=== PATIENT | male | born 1960 | race Caucasian/White ===

== ENCOUNTER 2016-09-03 11:57 | Inpatient (IN) | payer OTHER ==
[~2016-09-03] VITALS: Ht 175.2 cm; Wt 103.7 kg
--- NOTE | ~2016-09-03 | PR ---
[place], [place] PROGRESS NOTE NAME: LON VILLALOBOS UNIT #: [id number] ROOM: 428 DOCTOR: JONI TOMGI BIRTHDATE: [birth year] DOS: 09/04/2016 SUBJECTIVE: The patient is completely flat in bed, sleeping, easily arousable. Denies any specific cardiac complaint. Overall, he feels weak, tired, having no energy. Still feels he is short of breath. No specific chest pain, chest pressure, heaviness or tightness. No symptomatic palpitation. OBJECTIVE: VITAL SIGNS: Blood pressure 137/101, heart rate 107, on monitor is 120, and temperature 98.1. NECK: Good upstroke, no bruit. HEART: S1, S2, no rub. LUNGS: Clear to auscultation, slight decrease in air movement. No meli wheezing or rales. EXTREMITIES: Lower extremities. There is no edema with faint distal pulses. NEUROLOGIC: Grossly nonfocal. SKIN: No significant rash. LABORATORY DATA: White count 7.0, hemoglobin 14.4. Potassium 3.8, creatinine 1.49, BUN is 22. GFR is 49%. AST 39. Initial troponin of 0.063, then 0.071 and it is increasing in incremental to 0.106. INR 1.1. ASSESSMENT AND PLAN: Initial recurrent presentation with signs of tachycardia. Apparently, the patient was at his outpatient physician's office when he was noticed to be completely pale with an episode of drenching sweat and almost passed out. The patient was found out to be in atrial flutter. He had history of previous atrial fibrillation and multiple cardioversion. The patient currently on Xarelto. Our plan is to check the echocardiogram and for any wall motion abnormalities or LV dysfunction. Should that be relatively okay, then probably I am planning for patient being cardioverted on Tuesday. As per Dr. Valenzuela, the patient has been counseled about using Xarelto in the presence of aortic valve replacement, but apparently the patient accepted the risk and the notion of being off ____ use. We will plan for VANCE cardioversion hopefully on Tuesday. He will call for any change in symptoms. [place], [place] PROGRESS NOTE NAME: LON VILLALOBOS UNIT #: [id number] ROOM: [facility] DOCTOR: GI QUINONES MD BIRTHDATE: [birth year] GI QUINONES MD CM:ETHAN [id number] GI QUINONES MD 09/05/16 2253 interface
--- NOTE | ~2016-09-03 | PR ---
[place], [place] PROGRESS NOTE NAME: LON VILLALOBOS UNIT #: [id number] ROOM: 428 DOCTOR: GI QUINONES MD BIRTHDATE: [birth year] DOS: 09/05/2016 SUBJECTIVE: The patient appears to be doing relatively well. He continues to be completely asymptomatic, slightly still short of breath, tired with no energy. No meli chest pain, chest pressure, or no symptomatic palpitation. OBJECTIVE: VITAL SIGNS: Blood pressure 138/90, heart rate 70, respiratory rate of 20. NECK: Good upstroke, no bruit. HEART: S1, S2, no rub. LUNGS: Decreased air movement, but no meli wheezing or rales. LOWER EXTREMITIES: No edema. ASSESSMENT AND PLAN: History of atrial fibrillation/flutter. The patient presented with what looks like tachycardia, but symptoms of shortness of breath. The patient was found out to have atrial flutter, converted back to normal sinus rhythm spontaneously. At this stage, we will continue with Toprol 50 mg twice a day. The patient will follow up with his eeg technologist hopefully within 1-2 weeks upon discharge. This was conveyed to the patient. Antiarrhythmic will be deferred to his primary eeg technologist. . For now, we will continue with current medication along with Xarelto. GI QUINONES MD CM:PNTRANS [phone] [id number] IG QUINONES MD 09/05/161816 interface
[2016-09-03 12:03] VITALS: BP 90/60
[2016-09-03 12:14] LABS: BASO # 0.1 10*3/uL (0.0-0.1); BASO % 1.3 % (0.0-1.0); EOS # 0.4 10*3/uL (0.0-0.4); EOS % 3.4 % (1.0-4.0); HEMATOCRIT 48.9 % (42.0-52.0); HEMOGLOBIN 16.6 g/dl (14.0-18.0); LYMPH # 2.5 10*3/uL (1.3-4.4); LYMPH % 23.8 % (27.0-41.0); MEAN CELL VOLUME 97.4 fl (80.0-94.0); MEAN CORPUSCULAR HGB 33.1 pg (27.0-31.0); MEAN CORPUSCULAR HGB CONC 33.9 g/dl (33.0-37.0); MEAN PLATELET VOLUME 10.1 fl (9.6-12.3); MONO # 0.7 10*3/uL (0.1-1.0); MONO % 6.3 % (3.0-9.0); NEUT # 6.9 10*3/uL (2.3-7.9); PLATELET COUNT AUTOMATED 244 10*3/uL (130-400); RED BLOOD COUNT 5.02 10*6/uL (4.50-5.90); RED CELL DISTRI WIDTH 14.5 % (0-14.5); WHITE BLOOD COUNT 10.7 10*3/uL (4.8-10.8)
[2016-09-03 12:23] LABS: INTERNATIONAL NORM RATIO 1.1 (2.0-3.5)
[2016-09-03 12:32] LABS: BILIRUBIN, TOTAL 0.5 mg/dl (0.2-1.0); MAGNESIUM 1.9 mg/dL (1.5-2.1); POTASSIUM 3.9 mmol/L (3.5-5.1); TOTAL PROTEIN 7.5 gm/dL (6.4-8.2)
[2016-09-03 12:34] LABS: TROPONIN I 0.106 ng/ml (<0.045)
[2016-09-03] MEDS ORDERED: OXYCODONE HCL10 M1 PO (12:58)
[2016-09-03] MEDS ORDERED: DOXEPIN50 MG PO (12:59)
[2016-09-03] MEDS ORDERED: CYCLOBENZAPRINE10 MG PO ×2 (12:59→13:02)
[2016-09-03] MEDS ORDERED: MORPHINE SULFAT20 M2 PO (12:59)
[2016-09-03] MEDS ORDERED: LOPRESSOR50 M1 PO (13:00)
[2016-09-03] MEDS ORDERED: DULOXETINE HCL60 MG PO (13:00)
[2016-09-03] MEDS ORDERED: VALIUM10 MG PO (13:00)
[2016-09-03] MEDS ORDERED: XARE20MG PO (13:01)
[2016-09-03] MEDS ORDERED: RYTHMOL SR325 MG PO (13:01)
[2016-09-03] MEDS ORDERED: CYMBALTA30 MG PO (13:01)
[2016-09-03] MEDS ORDERED: PRAVASTATIN SOD10 MG PO (13:02)
[2016-09-03] MEDS ORDERED: PROVENTIL0.09 MG/A1 INH (13:02)
[2016-09-03 13:24] VITALS: BP 94/66
[2016-09-03 13:45] VITALS: BP 93/61
[2016-09-03 16:00] VITALS: BP 120/81
[2016-09-03 19:00] LABS: CKMB 1.7 ng/ml (0.5-3.6)
[2016-09-03 20:00] VITALS: BP 136/88
[2016-09-04] VITALS: BP 117/72
[2016-09-04 00:34] LABS: CKMB 1.2 ng/ml (0.5-3.6)
[2016-09-04 00:43] LABS: TROPONIN I 0.071 ng/ml (<0.045)
[2016-09-04] MEDS ORDERED: SYNTHROID,LEV112 MCG PO (05:39)
[2016-09-04 06:06] LABS: BASO # 0.1 10*3/uL (0.0-0.1); BASO % 1.6 % (0.0-1.0); EOS # 0.6 10*3/uL (0.0-0.4); EOS % 8.1 % (1.0-4.0); LYMPH # 3.6 10*3/uL (1.3-4.4); LYMPH % 50.6 % (27.0-41.0); MEAN CELL VOLUME 99.3 fl (80.0-94.0); MEAN CORPUSCULAR HGB 33.4 pg (27.0-31.0); MEAN CORPUSCULAR HGB CONC 33.6 g/dl (33.0-37.0); MEAN PLATELET VOLUME 10.5 fl (9.6-12.3); MONO # 0.4 10*3/uL (0.1-1.0); MONO % 5.8 % (3.0-9.0); NEUT # 2.4 10*3/uL (2.3-7.9); NEUT % 33.8 % (47.0-73.0); PLATELET COUNT AUTOMATED 195 10*3/uL (130-400); RED BLOOD COUNT 4.31 10*6/uL (4.50-5.90); RED CELL DISTRI WIDTH 14.3 % (0-14.5)
[2016-09-04 06:21] LABS: HEMATOCRIT 42.8 % (42.0-52.0); HEMOGLOBIN 14.4 g/dl (14.0-18.0)
[2016-09-04 06:24] LABS: CKMB 1.8 ng/ml (0.5-3.6)
[2016-09-04 06:34] LABS: TROPONIN I 0.063 ng/ml (<0.045)
[2016-09-04 06:36] LABS: ALBUMIN 3.7 gm/dl (3.1-4.5); BILIRUBIN, TOTAL 0.5 mg/dl (0.2-1.0); MAGNESIUM 1.7 mg/dL (1.5-2.1); PHOSPHOROUS 3.2 mg/dL (2.5-4.9); POTASSIUM 3.8 mmol/L (3.5-5.1); TOTAL PROTEIN 7.1 gm/dL (6.4-8.2)
[2016-09-04 06:42] LABS: THYROID STIM HORMONE (HS) 4.47 uIU/ml (0.358-4.75)
[2016-09-04 07:02] LABS: HEMOGLOBIN A1c 5.5 % (4.8-5.6)
[2016-09-04 08:00] VITALS: BP 137/101
[2016-09-04 08:00] LABS: VITAMIN D, 25-HYDROXY 7.4 ng/mL (30-100)
[2016-09-04 08:01] LABS: FOLIC ACID 7.59 ng/mL (>5.38)
[2016-09-04] MEDS ORDERED: RYTHMOL SR325 MG PO (08:34)
[2016-09-04 12:00] VITALS: BP 140/102
[2016-09-04 16:00] VITALS: BP 129/107
[2016-09-04 20:00] VITALS: BP 140/90
[2016-09-05] VITALS: BP 132/84
[2016-09-05 06:53] LABS: BUN 22 mg/dl (7-24); CARBON DIOXIDE 25 mmol/L (21-32); CHLORIDE 110 mmol/L (98-107); EST GLOM FILT AFRICAN AMERICAN > 60 ml/min; GLUCOSE 83 mg/dL (65-99); POTASSIUM 4.5 mmol/L (3.5-5.1); SODIUM 143 mmol/L (136-145)
[2016-09-05 08:00] VITALS: BP 138/90
[2016-09-05 12:00] VITALS: BP 155/78
[2016-09-05] MEDS ORDERED: TOPROL XL50 M1 PO (15:57)
== END 2016-09-05 17:02 | disposition home or self-care (01) | DRG 308 ==
LOC: ED 11:57 → EDHOLD 13:15 → 4E 13:15
PROVIDERS: Emergency Medicine; Family Medicine; Internal Medicine
DX: I48.92 Unspecified atrial flutter (principal); N17.0 Acute kidney failure with tubular necrosis; I11.0 Hypertensive heart disease with heart failure; I50.9 Heart failure, unspecified; I95.9 Hypotension, unspecified; D68.69 Other thrombophilia; I48.91 Unspecified atrial fibrillation; F31.9 Bipolar disorder, unspecified; E78.5 Hyperlipidemia, unspecified; E03.9 Hypothyroidism, unspecified; F17.210 Nicotine dependence, cigarettes, uncomplicated; Z95.2 Presence of prosthetic heart valve; Z82.49 Family history of ischemic heart disease and other diseases of the circulatory system

== ENCOUNTER 2017-03-13 04:26 | Inpatient (IN) | payer OTHER ==
[2017-03-13] VITALS (14 sets, daily range): BP systolic 75–173; BP diastolic 48–103
[~2017-03-13] VITALS: Ht 175.3 cm; Wt 92.1 kg
--- NOTE | ~2017-03-13 | EKG ---
[place], [place] ELECTROCARDIOGRAM REPORT NAME: LON VILLALOBOS UNIT #: [id number] ROOM: [place] [address] DOCTOR: EDSON JOLLY MD,MAICO BIRTHDATE: [birth year] DOS: 03/13/2017 TIME: 11:36 a.m. The normal sinus is noted. Heart rate 60 beats per minute. Mild prolongation of QTC interval was noted with nonspecific intraventricular conduction defect, possibility of right bundle branch block, incomplete right bundle branch block will be considered. There were no changes of ischemia. MAICO SANDHU MD CM:EKGRPT:ELECTROCARDIOGRAM REPORT [id number] MAICO JOLLY MD
--- NOTE | ~2017-03-13 | CON ---
[place], [place] REPORT OF CONSULTATION NAME: LON VILLALOBOS UNIT #: [id number] ROOM: [place] [address] DOCTOR: MAICO TORRES MD BIRTHDATE: [birth year] DOS: 03/13/2017 CONSULTATION REQUESTED BY: Hospitalist services. REASON FOR CONSULTATION: Assessment of acute respiratory failure. HISTORY OF PRESENT ILLNESS: A 56-year-old white male who has been admitted to the hospital under the care of the hospitalist services. The patient was found on floor over nearby [place] station locally. He has been brought to the hospital by the EMS. The patient has been admitted to medical floor. He has been noted PEA on the floor with unresponsiveness. The patient was resuscitated and then admitted to the Intensive Care Unit where he has been successfully intubated with endotracheal tube #8-Nauruan. The patient unable to give any history and pertinent history has not been available as well. At that time, the patient was noted with acute change in mental status. History has been essentially reviewed per previous documentation and admission to the hospital and not obtained from the patient since the patient is currently intubated and noted on mechanical ventilation. PAST MEDICAL HISTORY: 1. History of bipolar disorder. 2. Congestive heart failure, systolic or diastolic unknown. 3. History of reported hypercoagulable status. 4. Hyperlipidemia. 5. Essential hypertension. 6. Hypothyroidism. 7. Obesity. 8. Aortic valve disease with previous aortic valve replacement reported. 9. Atrial fibrillation and flutter. 10. History of chronic obstructive pulmonary disease. PAST SURGICAL HISTORY: Reported history of aortic valve replacement. SOCIAL HISTORY: Reported the patient with history of tobacco use, chronic; details about tobacco use quantity and time the smoking started was unknown. History of rare alcohol use is also described. FAMILY HISTORY: Reported as history of heart problem in father, congestive heart failure. Mother was also reported history of congestive heart failure. HOME MEDICATIONS: Reported use of Proventil HFA inhaler, Abilify, Flexeril, diazepam, doxepin, Synthroid, Toprol, morphine, oxycodone, Xarelto, and Spiriva. DRUG ALLERGIES: Reported as no known drug allergies. PHYSICAL EXAMINATION: GENERAL: A 56-year-old white male patient, currently intubated on mechanical ventilator. Height noted as 5 feet 9 inches, weight 203 pounds, BMI 30.8. VITAL SIGNS: Reported as normal temperature, respiratory rate 16-20, heart rate 78-86, blood pressure 132/80-116/70. Pulse oxygen saturation recorded on 5 L [place], [place] REPORT OF CONSULTATION NAME: LON VILLALOBOS UNIT #: [id number] ROOM: [place] [address] DOCTOR: EDSON JOLLY MD,MAICO BIRTHDATE: [birth year] nasal cannula was 93%, 100% nonrebreather on admission 98%. HEENT: The patient is currently intubated on mechanical ventilator. Endotracheal tube #8-Nauruan. Head was atraumatic. Eyes nonicterus. NECK: Supple. CARDIOVASCULAR: S1 and S2 audible. LUNGS: Noted with decreased breath sounds bilaterally. Noted expiratory wheezing. ABDOMEN: Soft with moderate obesity, bowel sounds present. CENTRAL NERVOUS SYSTEM: Cannot be examined as the patient is intubated and sedated. EXTREMITIES: Do not show any edema, clubbing, or cyanosis. SKIN: No lesions or rashes. LABORATORY DATA: Lactic acid on admission was 1.0. CBC on 03/13/2017 noted completely normal. INR 1.2. The CMP this morning on admission, normal BUN and creatinine. Potassium minimally elevated at 5.3. ProBNP 2300. The troponin first set noted as normal this morning. Repeat CBC this morning was noted as still normal. CMP repeated on 03/13/2017, glucose 193, potassium was 5.6, and magnesium was 1.8. INR was noted as 1.2. The chest x-ray, one view, was noted with findings of no acute pulmonary abnormality. The chest x-ray post intubation was reviewed. Endotracheal tube in appropriate position. NG tube was noted in appropriate position as well. Mild pulmonary venous congestion markings were noted. Ammonia level this morning was noted as normal. IMPRESSION: 1. The patient has been noted with change in mental status. At this time, etiology is unclear. Possibility of drug overdose, intentional or unintentional would be considered along with rule out any use of illicit drug with the patient's drug overdose as well. 2. The patient with acute exacerbation of chronic obstructive pulmonary disease as well. The arterial blood gas with 40% oxygen on O2, pH 7.31, pCO2 of 49, pO2 of 117. Acute hypercapnia was also noted. 3. History of past chronic nicotine dependence. 4. History of chronic obesity as well, which is noted as moderate. Significant cardiac history, the patient with atrial fibrillation and atrial flutter and the patient with aortic valve replacement were also known. Congestive heart failure at this time would be considered, rule out systolic or diastolic dysfunction. 5. Mild hyperkalemia, etiology was unclear. PLAN OF MANAGEMENT: The patient has been started on mechanical ventilation, tidal volume 600 mL, respiratory rate of 12, assist control mode, 100% oxygen noted saturation at this time 100%, PEEP of 5 was also added to the treatment. Obtain the endotracheal aspirate culture. Urine drug screen was ordered. Bronchodilator will be started to help mobilize secretion. The patient will be also started on the ventilator bundle management that includes use of Peridex ____ out of the bed. The patient ____ 30 degrees all the time unless contraindicated. DVT prophylaxis in the form of Xarelto will be continued. The patient is already getting Solu-Medrol for the management of acute exacerbation of COPD. One dose of Kayexalate will be given to the patient as well to treat the hyperkalemia. Await the results of urine drug toxicology as well. [place], [place] REPORT OF CONSULTATION NAME: LON VILLALOBOS UNIT #: [id number] ROOM: [place] [address] DOCTOR: MAICO TORRES MD BIRTHDATE: [birth year] echocardiogram will be obtained to rule out any ischemic changes. Total time of pulmonary critical care management was 40 minutes. MAICO SANDHU MD CM:CONSTR:REPORT OF CONSULTATION 1215 03/19/17 0849 interface
--- NOTE | ~2017-03-13 | PR ---
[place], [place] PROGRESS NOTE NAME: LON VILLALOBOS UNIT #: [id number] ROOM: [place] [address] DOCTOR: VASQUEZ BRANDON DO BIRTHDATE: [birth year] DOS: 03/13/2017 I was working in the ER, received a call from the ICU, stating they were having a difficult time getting in airway for intubation on the patient. I proceeded directly to the ICU. The patient was found to be having oxygen sat in the mid 70s, about 75, blood pressure was about 120/80, pulse was in the 110s. The patient was apparently already been given 20 of etomidate and 100 of succinylcholine. He was being bagged at that time, he did have a pulse, no compressions were being performed. A 7.5 ET tube was inserted under simple visualization with a MAC blade. Good fogging in the tube was appreciated, breath sounds are found to be adequate bilaterally. No sounds of the epigastrium. Oxygen saturation improved to the mid 90s. VASQUEZ BRANDON DO CM:PNTRANS [id number] VASQUEZ BRANDON DO 03/16/17 0710 interface
--- NOTE | ~2017-03-13 | PR ---
[place], [place] PROGRESS NOTE NAME: LON VILLALOBOS UNIT #: [id number] ROOM: [place] [address] DOCTOR: EDSON JOLLY MD,MAICO BIRTHDATE: [birth year] DOS: 03/15/2017 SUBJECTIVE: He has been noted comfortable at this time. The patient has been successfully liberated from the mechanical ventilator yesterday. He is noted awake and alert this morning and cooperative with the examination, has not been reported any hemodynamic instability. He has not been noted with agitational behavior. OBJECTIVE: VITAL SIGNS: Temperature noted low grade 99.5 degrees Fahrenheit, respiratory rate ranging between 22-18. Heart rate of 92-109. The blood pressure 115/88-121/88. HEENT: Examination shows mild obesity. The patient is currently extubated. Orogastric endotracheal tube has been removed. CARDIOVASCULAR: S1, S2 audible. LUNGS: The patient noted with moderate reduction in the breath sounds in the lungs bilaterally. Expiratory wheezing was noted partially decreased from previous examination. ABDOMEN: Soft and nontender. EXTREMITIES: No edema. LABORATORY DATA: The culture of the sputum were noted light growth of gram-positive cocci, pending further identification and sensitivities of the organisms. The blood cultures 2 sets for this patient was noted as normal caitlyn, rather no bacterial growth since 03/13/2017. Chest x-ray of the patient that was done, 1 view, this morning was reviewed and it does not show any acute pulmonary infiltration. IMPRESSION: 1. Acute severe tracheobronchitis with gram-positive organism, pending identification sensitivities. Rule out Methicillin-resistant Staphylococcus aureus versus Staph aureus or Streptococcus pneumonia. 2. History of chronic nicotine abuse. 3. Changes in the mental status has been completely resolved. 4. Unintentional drug overdose. 5. Acute exacerbation of chronic obstructive pulmonary disease. PLAN OF MANAGEMENT: Continuation of the bronchodilators with the oxygen supplementation. PLAN OF TREATMENT: Decrease the Solu-Medrol dose to 40 mg Solu-Medrol b.i.d. Oxygen supplementation to maintain a saturation of 92% or greater. Usual treatment changes need to be made for this patient based on the progression of the illness. [place], [place] PROGRESS NOTE NAME: LON VILLALOBOS UNIT #: [id number] ROOM: [place] [address] DOCTOR: MAICO TORRES MD BIRTHDATE: [birth year] MAICO SANDHU MD CM:PNTRANS [phone] MAICO JOLLY MD 03/15/17 2331 interface
--- NOTE | ~2017-03-13 | PR ---
[place], [place] PROGRESS NOTE NAME: LON VILLALOBOS UNIT #: [id number] ROOM: [place] [address] DOCTOR: EDSON JOLLY MD,MAICO BIRTHDATE: [birth year] DOS: 03/14/2017 SUBJECTIVE: The patient was continued to be treated in the Intensive Care Unit. The blood pressure of the patient has been noted in the normal range. The mental status has been noted with gradual improvement. The patient's sedation has it has been discontinued was noted more appropriate response to the vocal commands and understanding as per nursing staff. He has not been noted any symptoms of hemodynamic instability. He has been given one dose of IV Lasix because of pulmonary venous congestion noted on the chest x-ray. He has been noted moderate amount of thick mucoid secretion which were described to be ____ suctioned out with the nursing staff as well. The nurse did ask the patient about the medications intake. He stated that he maybe taken more medications. HOME MEDICATIONS: He has not been noted any other acute changes at this time. He remains afebrile. OBJECTIVE: VITAL SIGNS: Blood pressure ranging between 121/71-95/57, heart rate was recorded as 64-82 to normal sinus rhythm. The respiratory rate 10-13, temperature noted as normal. HEENT: Examination shows the patient remained orally intubated. NECK: Supple. Head was atraumatic. Orogastric tube is in place. The feeding was continued through the orogastric tube as tolerated. CARDIOVASCULAR: S1, S2 audible. LUNGS: Noted moderate reduction in breath sounds bilaterally. Wheezing was still noted, but noted partial decrease from yesterday's examination. ABDOMEN: Noted soft. Moderate obesity, bowel sounds present. EXTREMITIES: Without any edema, clubbing or cyanosis. LABORATORY DATA: Arterial blood gas after adjustment of mechanical ventilation. The patient on 40% oxygen, pH of 7.25, pCO2 of 65, pO2 of 84. The arterial blood gas that was done this morning, 40% oxygen, tidal volume of 650 mL with peak flow 70 and PEEP of 5.0, pH of 7.35, pCO2 of 55.2, pO2 of 150 noted. Endotracheal aspirate Gram stain from yesterday noted with moderate white blood cells, moderate gram-positive cocci in pairs with preliminary normal caitlyn culture was described. The BMP that was done this morning, sodium 143, BUN of 28, creatinine 1.46. CO2 33. Remaining LFTs were recorded as normal. Prealbumin noted as 12 moderately decreased. The PT, PTT was noted normal this morning. Chest x-ray that was done this morning was also reviewed from the FRAX images. Endotracheal tube was noted in appropriate position with resolution of previously noted. Pulmonary venous congestion yesterday. No acute area of consolidation, infiltration visible. CBC of this morning essentially noted with MCV of 100.9, WBC count was normal at 10.1, hemoglobin and hematocrit normal, platelet count remains normal. The troponin which was cycled yesterday were noted as normal. Electrocardiogram for the patient does not show any acute ischemic changes. IMPRESSION: 1. The patient who has been currently admitted to the hospital noted with change in mental status, most likely related to the acute unintentional drug [place], [place] PROGRESS NOTE NAME: LON VILLALOBOS UNIT #: [id number] ROOM: [place] [address] DOCTOR: HELGA TORRES MDM BIRTHDATE: [birth year] overdose of his medications. ____ noted positive for opiates as well as for the benzodiazepines. 2. The patient with acute exacerbation of chronic obstructive pulmonary disease. 3. Acute hypercapnia and hypoxia was noted related to the acute drug overdose with the patient and exacerbation of chronic obstructive pulmonary disease combination. 4. Clinical suspicion of obstructive sleep apnea disorder would be considered. 5. History of nicotine dependence as well. 6. Acute kidney injury. The patient most likely prerenal azotemia would be considered as the patient was given Lasix yesterday. 7. Chronic obesity as well. 8. Chronic anticoagulation with history of atrial fibrillation, currently noted as a normal sinus rhythm. There was no evidence of tachycardia. PLAN OF TREATMENT: Continuation of antibiotic, use of the corticosteroids. Monitor kidney functions closely, avoid further diuresis at the present time. Nutrition support to be continued. Discontinue sedation this morning and once the patient noted fully awake and alert and cooperative with the examination. He will be started on CPAP 5, pressure support of 10 that will be continued for 2 hours. Arterial blood gases will be done. The patient tolerated a CPAP trial for possible assessment of readiness to liberate from mechanical ventilation. Post-extubation, the patient might require the BiPAP use as well to support his respiratory status. No changes dose of steroids needs to be done. Continue nutrition support until then from the orogastric tube as well. Usual care. Supportive therapy, plan of management. Continue to monitor kidney functions closely. Critical care evaluation and management. Total time for pulmonary care evaluation and management today was 35 minute. MAICO SANDHU MD CM:PNTRANS [phone] MAICO JOLLY MD 03/14/17 2335 interface
--- NOTE | ~2017-03-13 | EKG ---
[place], [place] ELECTROCARDIOGRAM REPORT NAME: LON VILLALOBOS UNIT #: [id number] ROOM: [place] [address] DOCTOR: FAVIOLA TOM,BECCA BIRTHDATE: [birth year] DOS: 03/13/2017 TIME: 4:53 a.m. IMPRESSION: 1. Sinus rhythm. 2. Left atrial enlargement. 3. Baseline artifacts. 4. Normal QT interval. BECCA SALMERON MD CM:EKGRPT:ELECTROCARDIOGRAM REPORT 1022 [id number] BECCA SALMERON MD
[~2017-03-13 04:26] MED LIST: CYCLOBENZAPRINE10 MG PO; CYMBALTA30 MG PO; DOXEPIN50 MG PO; DULOXETINE HCL60 MG PO; LOPRESSOR50 M1 PO; MORPHINE SULFAT20 M2 PO; OXYCODONE HCL10 M1 PO; PRAVASTATIN SOD10 MG PO; PROVENTIL0.09 MG/A1 INH; RYTHMOL SR325 MG PO; SYNTHROID,LEV112 MCG PO; TOPROL XL50 M1 PO; VALIUM10 MG PO; XARE20MG PO
[2017-03-13 04:58] LABS: BASO # 0.1 10*3/uL (0.0-0.1); EOS # 0.4 10*3/uL (0.0-0.4); EOS % 4.3 % (1.0-4.0); HEMOGLOBIN 15.3 g/dl (14.0-18.0); LYMPH # 1.7 10*3/uL (1.3-4.4); LYMPH % 19.4 % (27.0-41.0); MEAN CELL VOLUME 97.7 fl (80.0-94.0); MEAN CORPUSCULAR HGB 31.8 pg (27.0-31.0); MEAN CORPUSCULAR HGB CONC 32.6 g/dl (33.0-37.0); MEAN PLATELET VOLUME 9.9 fl (9.6-12.3); MONO # 0.7 10*3/uL (0.1-1.0); MONO % 7.8 % (3.0-9.0); NEUT % 67.3 % (47.0-73.0); PLATELET COUNT AUTOMATED 217 10*3/uL (130-400); RED BLOOD COUNT 4.81 10*6/uL (4.50-5.90); RED CELL DISTRI WIDTH 15.7 % (0-14.5); WHITE BLOOD COUNT 8.9 10*3/uL (4.8-10.8)
[2017-03-13 05:09] LABS: ABG BASE EXCESS -2.1 mmol/L (-2.0-2.0); ABG HCO3 24.3 mmol/l (22-26); ARTERIAL BLOOD GAS PH 7.314 (7.35-7.45)
[2017-03-13 05:11] LABS: INTERNATIONAL NORM RATIO 1.2 (2.0-3.5)
[2017-03-13 05:17] LABS: ALBUMIN 3.7 gm/dl (3.1-4.5); ALKALINE PHOSPHATASE 73 U/L (45-117); BUN 10 mg/dl (7-24); CHLORIDE 104 mmol/L (98-107); CREATININE 0.83 mg/dL (0.70-1.30); LIPASE 46 U/L (73-393); POTASSIUM 5.3 mmol/L (3.5-5.1); SGOT/AST 20 IU/L (3-35); SGPT/ALT 18 U/L (12-78); SODIUM 142 mmol/L (136-145); TOTAL PROTEIN 8.1 gm/dL (6.4-8.2)
[2017-03-13 05:20] LABS: ETHYL ALCOHOL < 3.0 mg/dl (<3); TROPONIN I < 0.015 ng/ml (<0.045)
--- NOTE | 2017-03-13 06:30 | NUR ---
A 56, admitted to 5E, under the services of GERMÁN Vaughn DO with a diagnosis of COPD, RESPIRATORY FAILURE. Chief complaint is FOUND IN BP PARKING LOT, SLUMPED OVER HIS STEERING WHEEL. Patient arrived via ambulance from ER. Monitor applied. Initial assessment completed. Vital signs taken and recorded. GERMÁN VAUGHN DO notified of admission to the unit. Orders received. See assessment for past medical history, medications and allergies. Patient and/or family oriented to unit. [facility] visitation policy reviewed. Clothing/patient valuable form completed. LON MATAMOROS
[2017-03-13] MEDS ORDERED: SPIRIVA18 MCG PO (08:12)
[2017-03-13] MEDS ORDERED: KADIAN20 M1 PO (08:20)
[2017-03-13] MEDS ORDERED: ABILIFY10 MG PO (08:23)
--- NOTE | 2017-03-13 09:40 | NUR ---
CALLED DR JANSEN REGARDING PT LETHARGY AND CONFUSION. RESUESTED ORDER FOR BI-PAP. ORDER RECEIVED. CALLED RESPIRATORY TO IMPLEMENT.
--- NOTE | 2017-03-13 11:05 | NUR ---
CALLED DR JANSEN REGARDING PT INCREASED LETHARGY. REQUESTED ORDER FOR STRAIGHT CATH, URINE DRUG AND ABG DRAW. ORDERS RECEIVED.
--- NOTE | 2017-03-13 11:10 | NUR ---
RESPIRATORY IN WITH PATIENT. CODE BLUE CALLED. 1117 PT TRANSFERED TO ICCU. REPORT GIVEN TO VAISHALI SOLORZANO
--- NOTE | 2017-03-13 11:21 | NUR ---
PT TRANSFERED FROM TO ICCU 11 POST CODE BLUE. PT NSR RATE 60'S ON THE MONITOR AT THIS TIME. POX 99% ON 100% NRB. PT LETHARGIC. PT INTUBATED IMMEDIATLY ON ARRIVAL TO ICCU. OG TUBE PLACED AND SONI CATHETER PLACED. DR SANDHU IN THE ICU AT TIME OF PT'S ARRIVAL AND IS AWARE OF NEW CONSULT ORDER.
[2017-03-13 11:35] LABS: BASO % 0.2 % (0.0-1.0); EOS % 0.2 % (1.0-4.0); HEMATOCRIT 46.6 % (42.0-52.0); HEMOGLOBIN 14.8 g/dl (14.0-18.0); LYMPH # 1.2 10*3/uL (1.3-4.4); LYMPH % 20.1 % (27.0-41.0); MEAN CELL VOLUME 98.5 fl (80.0-94.0); MEAN CORPUSCULAR HGB 31.3 pg (27.0-31.0); MEAN CORPUSCULAR HGB CONC 31.8 g/dl (33.0-37.0); MEAN PLATELET VOLUME 10.1 fl (9.6-12.3); MONO # 0.2 10*3/uL (0.1-1.0); MONO % 2.6 % (3.0-9.0); NEUT # 4.4 10*3/uL (2.3-7.9); NEUT % 76.6 % (47.0-73.0); PLATELET COUNT AUTOMATED 202 10*3/uL (130-400); RED BLOOD COUNT 4.73 10*6/uL (4.50-5.90); RED CELL DISTRI WIDTH 15.7 % (0-14.5); WHITE BLOOD COUNT 5.8 10*3/uL (4.8-10.8)
[2017-03-13 11:55] LABS: ALBUMIN 3.3 gm/dl (3.1-4.5); ALKALINE PHOSPHATASE 71 U/L (45-117); BUN 15 mg/dl (7-24); CHLORIDE 107 mmol/L (98-107); POTASSIUM 5.6 mmol/L (3.5-5.1); SGOT/AST 19 IU/L (3-35); SGPT/ALT 16 U/L (12-78); SODIUM 140 mmol/L (136-145); TOTAL PROTEIN 7.4 gm/dL (6.4-8.2)
[2017-03-13 11:56] LABS: TROPONIN I < 0.015 ng/ml (<0.045)
--- NOTE | 2017-03-13 12:00 | NUR ---
ON ARRIVAL TO ICU PT HAS A LARGE SCABBED AREA TO AREA RIGHT BENEATH BOTH KNEES.
[2017-03-13 12:13] LABS: ABG O2 SATURATION 99.6 % (95-97)
[2017-03-13 12:16] LABS: BILIRUBIN NEGATIVE (NEGATIVE); BLOOD NEGATIVE (NEGATIVE); CLARITY CLEAR (CLEAR); COLOR YELLOW (YELLOW); GLUCOSE NEGATIVE (NEGATIVE); KETONE NEGATIVE (NEGATIVE); LEUKO ESTERASE NEGATIVE (NEGATIVE); NITRITE NEGATIVE (NEGATIVE); UROBILINOGEN 0.2 E.U./dl (0.2-1.0)
[2017-03-13 12:17] LABS: ARTERIAL BLOOD GAS PCO2 74.5 mmHg (35-45); ARTERIAL BLOOD GAS PH 7.178 (7.35-7.45)
[2017-03-13 12:22] LABS: URINE AMPHETAMINES < 1000 (1000ng/ml); URINE BARBITURATES < 200 (200ng/ml); URINE BENZODIAZEPINES > 200 (200ng/ml); URINE CANNABINOIDS (THC) < 50 (50ng/ml); URINE COCAINE < 300 (300ng/ml); URINE METHADONE < 300 (300ng/ml); URINE OPIATES > 300 (300ng/ml)
--- NOTE | 2017-03-13 12:22 | NUR ---
DR. SANDHU MADE AWARE OF ABG RESULTS.
[2017-03-13 12:24] LABS: URINE PHENCYCLIDINE < 25 (25ng/ml)
[2017-03-13 12:28] LABS: BACTERIA TRACE; MUCOUS 1+; WBC 0-2 wbc/hpf (0-5)
--- NOTE | 2017-03-13 12:29 | NUR ---
DIPRIVAN GTT STOPPED AT THIS TIME DUE TO DECREASED BP IN THE 70'S SYSTOLIC.
[2017-03-13 15:12] LABS: ABG HCO3 28.1 mmol/l (22-26); ABG O2 SATURATION 95.6 % (95-97); ARTERIAL BLOOD GAS PCO2 65.3 mmHg (35-45); ARTERIAL BLOOD GAS PH 7.251 (7.35-7.45); ARTERIAL BLOOD GAS PO2 84.7 mmHg (80-90)
--- NOTE | 2017-03-13 16:09 | NUR ---
I TRIED TO REACH PT'S NEXT OF KIN JUAN VILLALOBOS AT BOTH NUMBERS WE HAVE LISTED BUT NO ONE ANSWERED AT EITHER OF THE NUMBERS AND NEITHER OF THEM HAD A VOICE MAIL SET UP. I TRIED [phone] AND ALSO [phone]
--- NOTE | 2017-03-13 16:34 | NUR ---
[facility] STARTED AT 30CC/HR THROUGH OG TUBE.
[2017-03-13 18:01] LABS: BUN 19 mg/dl (7-24); CHLORIDE 105 mmol/L (98-107); CREATININE 1.29 mg/dL (0.70-1.30); SODIUM 139 mmol/L (136-145)
[2017-03-13 18:05] LABS: POTASSIUM 6.3 mmol/L (3.5-5.1)
--- NOTE | 2017-03-13 19:00 | NUR ---
A 56, admitted to ICCU, under the services of GERMÁN Vaughn DO with a diagnosis of BARBITUATE AND BENZO OVERDOSE. Chief complaint is UNRESPONSIVE. Patient arrived via stretcher from ER. Monitor applied. Initial assessment completed. Vital signs taken and recorded. GERMÁN VAUGHN DO notified of admission to the unit. Orders received. See assessment for past medical history, medications and allergies. Patient and/or family oriented to unit. [facility] ICCU visitation policy reviewed. Clothing/patient valuable form completed. DARIUS COOPER
--- NOTE | 2017-03-13 19:03 | NUR ---
PT AWAKE AND ALERT. FOLLOWING COMMANDS, ANXIOUS ABOUT HAVING TUBE IN. DIPRIVAN RESTARTED AT 20MCG/KG/MIN. BP 118/71
--- NOTE | 2017-03-13 20:15 | NUR ---
DR. SANTA NOTIFED OF NEED TO UPDATE MEDICATIONS DUE TO MULTIPLE PRESCRIBED MEDS UNABLE TO BE CRUSHED AND GIVEN VIA OGT. STATES THEY WILL BE REVIEWED TOMORROW AND UPDATED AT THAT TIME, TO CALL BACK IF ANYTHING IS NEEDED URGENTLY TONIGHT. JAIME TAN RN
--- NOTE | 2017-03-13 22:30 | NUR ---
VERSED 5MG GIVEN X1 IN ADDITION TO DIPRIVAN DRIP INFUSING @ 30 MCGS EFFECTIVE FOR SEDATION. JAIME TAN RN
[2017-03-14] VITALS (8 sets, daily range): BP systolic 90–123; BP diastolic 50–78
--- NOTE | 2017-03-14 01:30 | NUR ---
PT AGITATED AND ATTEMPTING TO SIT UP IN BED AND REACHING FOR ENDOTUBE. DIPRIVAN DRIP CONTINUES AT 30MCGS. MEDICATED WITH VERSED PER PRN ORDER, EFFECTIVE IMMEDIATELY FOR SEDATION. WILL CONTINUE TO MONITOR. JAIME TAN RN
[2017-03-14 05:16] LABS: BASO % 0.2 % (0.0-1.0); EOS % 0.1 % (1.0-4.0); HEMATOCRIT 44.1 % (42.0-52.0); LYMPH # 1.2 10*3/uL (1.3-4.4); LYMPH % 12.3 % (27.0-41.0); MEAN CELL VOLUME 100.9 fl (80.0-94.0); MEAN CORPUSCULAR HGB CONC 31.7 g/dl (33.0-37.0); MEAN PLATELET VOLUME 10.7 fl (9.6-12.3); MONO % 10.3 % (3.0-9.0); NEUT # 7.8 10*3/uL (2.3-7.9); NEUT % 76.7 % (47.0-73.0); PLATELET COUNT AUTOMATED 193 10*3/uL (130-400); RED BLOOD COUNT 4.37 10*6/uL (4.50-5.90); RED CELL DISTRI WIDTH 15.8 % (0-14.5); WHITE BLOOD COUNT 10.1 10*3/uL (4.8-10.8)
--- NOTE | 2017-03-14 05:18 | NUR ---
PATIENT RESTLESS. MEDICATED WITH VERSED PER PRN ORDER IN ADDITION TO DIPRIVAN DRIP INFUSING AT 30CC/HR. VERSED IMMEDIATELY EFFECTIVE FOR SEDATION. JAIME TAN RN
[2017-03-14 05:30] LABS: ACT PARTIAL THROMBO TIME 24.7 SECONDS (20.8-31.5); INTERNATIONAL NORM RATIO 1.1 (2.0-3.5)
[2017-03-14 05:33] LABS: ALBUMIN 3.2 gm/dl (3.1-4.5); ALKALINE PHOSPHATASE 66 U/L (45-117); BUN 28 mg/dl (7-24); CHLORIDE 104 mmol/L (98-107); CHOLESTEROL 156 mg/dL (<200); CREATININE 1.46 mg/dL (0.70-1.30); HDL CHOLESTEROL 60 mg/dl (40-60); LDL CHOLESTEROL 70 mg/dL (9-159); PHOSPHOROUS 5.1 mg/dL (2.5-4.9); POTASSIUM 4.4 mmol/L (3.5-5.1); SGOT/AST 22 IU/L (3-35); SGPT/ALT 16 U/L (12-78); SODIUM 143 mmol/L (136-145); TRIGLYCERIDES 132 mg/dl (<150); VLDL CHOLESTEROL 26 mg/dL (6-40)
[2017-03-14 05:41] LABS: FREE T4 1.06 ng/dl (0.76-1.46); PREALBUMIN 12 mg/dl (20-40)
--- NOTE | 2017-03-14 06:20 | NUR ---
PATIENT RESTLESS AND ATTEMPTING TO SIT UP IN BED DESPITE DIPRIVAN DRIP INFUSING @ 30MCGS. MEDICATED WITH VERSED PER PRN ORDER, EFFECTIVE IMMEDIATELY. WILL MONITOR. JAIME TAN RN
[2017-03-14 07:26] LABS: VITAMIN D, 25-HYDROXY 8.9 ng/mL (30-100)
--- NOTE | 2017-03-14 07:27 | NUR ---
Shift chart check completed.
[2017-03-14 07:47] LABS: ABG BASE EXCESS 3.3 mmol/L (-2.0-2.0); ABG HCO3 29.7 mmol/l (22-26); ARTERIAL BLOOD GAS PCO2 55.2 mmHg (35-45); ARTERIAL BLOOD GAS PH 7.35 (7.35-7.45)
--- NOTE | 2017-03-14 07:59 | NUR ---
DR MCKEON CALLED ABOUT MEDS THAT CANNOT BE GIVEN VIA OGT.
--- NOTE | 2017-03-14 08:02 | NUR ---
SUCTIONED FOR LARGE AMOUNT OF THICK YELLOW SPUTUM. DISCUSSED CARE WITH THE PATIENT WHO IS AWAKE & ANXIOUS ON 30mcg DIPRIVAN. PT NODDED UNDERSTANDING. PATIENT ALSO NODDED THAT HE HAD DONE DRUGS WHEN ASKED. INCREASED TO 50 mcg TO PROMOTE REST/DECREASED ANXIETY. INCREASE EFFECTIVE
--- NOTE | 2017-03-14 08:30 | NUR ---
SUPERVISOR GROUNDS VS. PT ON VENT.
[2017-03-14] MEDS ORDERED: LOPRESSOR50 M1 PO (08:53)
--- NOTE | 2017-03-14 09:11 | NUR ---
DR SANDHU HERE AND PATIENT SEEN. BRENDON GALLARDO STOPPED AND AWAITNG RESP TO MAKE VENT CHANGES
--- NOTE | 2017-03-14 09:26 | NUR ---
MED REC UPDATED AGAINST MED CLAIM HISTORY. CHANGES MADE AND 3 OF THE MEDS HAVE NOT BEEN FILLED SINCE 01/23/17.
--- NOTE | 2017-03-14 10:24 | NUR ---
PATIENT DOING WELL WITHOUT SEDATION. EYES OPEN AND NODS UNDERSTANDING.
[2017-03-14 11:04] LABS: ABG BASE EXCESS 5.2 mmol/L (-2.0-2.0); ABG HCO3 30.2 mmol/l (22-26); ARTERIAL BLOOD GAS PCO2 46.3 mmHg (35-45); ARTERIAL BLOOD GAS PH 7.428 (7.35-7.45); ARTERIAL BLOOD GAS PO2 76.1 mmHg (80-90)
--- NOTE | 2017-03-14 11:05 | NUR ---
PT SUCTIONED FOR A SMALL AMOUNT OF BROWN SECRETIONS ORALLY. PT EXTUBATED TO A 4L NC WITH NO COMPS. ENCOURAGED PT TO COUGH AND DEEP BREATHE. NO STRIDOR HEARD. PT RESTING COMFORTABLY ON 4L NC WITH AN SPO2 OF 93% AND A HR OF 90.
--- NOTE | 2017-03-14 11:12 | NUR ---
Patient extubated on physician's order. Nasal Cannula 4L. Pulse oximeter on with alarms set at 10% below patient's baseline. Pharyngeal reflex present prior to extubation. Patient encouraged to cough and deep breathe. Patient observed for skin color and temperature, monitor rhythm, respiratory rate and effort, and level of consciousness. NPO for 4 hours. Patient tolerated procedure well. FAWN WILKINSON
--- NOTE | 2017-03-14 11:16 | NUR ---
attempted to call Rach per pt request
--- NOTE | 2017-03-14 11:35 | NUR ---
DR SANDHU AWARE OF EXTUBATION. NO FURTHER ORDERS
--- NOTE | 2017-03-14 12:26 | NUR ---
ECHO BEING DONE AT BEDSIDE
--- NOTE | 2017-03-14 12:40 | NUR ---
ATTEMPTED TO CALL [facility] AT BOTH NUMBERS WE HAVE BUT UNABLE TO MAKE CONTACT & UNABLE TO LEAVE A MESSAGE
--- NOTE | 2017-03-14 14:01 | NUR ---
catheter removed per orders - pt tolerated well.
--- NOTE | 2017-03-14 14:22 | NUR ---
PT MEDICATED WITH VALIUM AFTER INCREASING ANXIETY & TEARFUL THAT HE IS HERE AND MISSED HIS GRANDDAUGHTER'S BDAY
--- NOTE | 2017-03-14 14:30 | NUR ---
[employer] CALLED TO VERIFY WHERE THE PATIENT'S CAR WAS LOCATED TO RELIEVE ANXIETY. THE CAR IS NEAR THE AIR PUMP AT THE IN [facility]. PATIENT MADE AWARE.
--- NOTE | 2017-03-14 17:46 | NUR ---
RESTING QUIETLY SINCE MEDICATED
--- NOTE | 2017-03-14 18:34 | NUR ---
PATIENT HAVING SINUS TACH WITH PAC'S
--- NOTE | 2017-03-14 20:10 | NUR ---
PT. RESTING IN BED. HEP LOCK IN RH AND LA ASYMPT. LUNGS HAVE I&E WHEEZES BILAT, PULSE OX 89% ON RA, PT. PLACED ON 2L NC, PULSE OX NOW 92%. ABDOMEN SOFT, NONDISTENDED AND NORMO. 1+BLE EDEMA NOTED. RESP. EASY AND REG, NO DISTRESS. DARIUS COOPER RN
--- NOTE | 2017-03-14 20:24 | NUR ---
2005 - CODE JOSHUA CALLED. PT. PULLED OUT HEP LOCK IN AND WAS BLEEDING PROFUSELY. STATED HE WAS GOING TO THE BATHROOM AND HEADED DOWN THE LOZANO TOWARD 4E NURSING DESK. UNABLE TO TALK PATIENT BACK TO ROOM. STATED HE WAS LEAVING. PATIENT BACK TO ICU-11. DR. TAYLOR AND RON AT BEDSIDE, ALONG WITH SECURITY AND SHIFT DIRECTOR. PT. EXPRESSING DESIRE TO LEAVE STILL. DARIUS COOPER RN
--- NOTE | 2017-03-14 20:39 | NUR ---
PT. CONVINCED TO STAY AT THIS TIME. DARIUS COOPER RN
--- NOTE | 2017-03-14 20:41 | NUR ---
NO ORDERS RECEIVED. INSTRUCTED TO GIVEN BID VALIUM NOW DARIUS COOPER RN.
--- NOTE | 2017-03-14 21:15 | NUR ---
PT. GIVEN ABILIFY, FLEXERIL AND VALIUM ORDERED AT 2057 FOR ANXIETY AND CHRONIC BACK DISCOMFORT. DARIUS COOPER RN
--- NOTE | 2017-03-14 22:53 | NUR ---
PT. AWAKE BUT CALM, RESTING WITH EYES WIDE OPEN STARING AT STAFF. PRN MEDS MILDLY EFFECTIVE. DARIUS COOPER RN
[2017-03-15] VITALS: BP 157/83
[2017-03-15 04:00] VITALS: BP 159/88
[2017-03-15 04:40] LABS: BASO % 0.3 % (0.0-1.0); EOS % 0.1 % (1.0-4.0); HEMATOCRIT 39.1 % (42.0-52.0); HEMOGLOBIN 13.1 g/dl (14.0-18.0); LYMPH # 1.6 10*3/uL (1.3-4.4); LYMPH % 17.5 % (27.0-41.0); MEAN CORPUSCULAR HGB 31.8 pg (27.0-31.0); MEAN CORPUSCULAR HGB CONC 33.5 g/dl (33.0-37.0); MEAN PLATELET VOLUME 10.5 fl (9.6-12.3); MONO # 0.6 10*3/uL (0.1-1.0); MONO % 6.2 % (3.0-9.0); NEUT # 6.8 10*3/uL (2.3-7.9); NEUT % 75.7 % (47.0-73.0); PLATELET COUNT AUTOMATED 210 10*3/uL (130-400); RED BLOOD COUNT 4.12 10*6/uL (4.50-5.90); RED CELL DISTRI WIDTH 15.6 % (0-14.5)
[2017-03-15 04:53] LABS: MEAN CELL VOLUME 94.9 fl (80.0-94.0)
[2017-03-15 05:07] LABS: BUN 23 mg/dl (7-24); CHLORIDE 101 mmol/L (98-107); CREATININE 0.86 mg/dL (0.70-1.30); POTASSIUM 3.5 mmol/L (3.5-5.1); SODIUM 140 mmol/L (136-145)
--- NOTE | 2017-03-15 06:04 | NUR ---
PT. GIVEN VALIUM AT 0549 ORDERED FOR ANXIETY.
--- NOTE | 2017-03-15 06:30 | NUR ---
OXY-IR GIVEN ORDERED PER PT REQUEST FOR BACK PAIN MED. DARIUS COOPER RN
--- NOTE | 2017-03-15 06:31 | NUR ---
PT. STATED VALIUM EFFECTIVE FOR ANXIETY.
[2017-03-15 08:00] VITALS: BP 173/100
--- NOTE | 2017-03-15 08:00 | NUR ---
Manganese Wheeler in to talk to patient. Patient states lives at HOME ALONE with . There are 2 steps in the home. Physician: DR FORREST Pharmacy: [facility] services: NONE Patient's level of ADLs: INDEPENDENT Patient has working utilities: YES DME: NONE Follow-up physician's appointment after d/c: WILL BE MADE PRIOR TO DC Does patient want to access PORTAL?: Discharge plan HOME. NESTOR STEPHENS
--- NOTE | 2017-03-15 11:27 | NUR ---
PT MEDICATED WITH DULCOLAX 5MG PO TAB FOR C/O CONSTIPATION.
--- NOTE | 2017-03-15 11:45 | NUR ---
DR MCKEON MADE AWARE OF PT'S BP OF 167/101 DESPITE BEING MEDICATED WITH LOPRESSOR THIS AM. DR MCKEON ALSO MADE AWARE THAT PT'S POX 88-90% ON ROOM AIR ONLY MINUTES AFTER O2 REMOVED.
[2017-03-15 11:46] VITALS: BP 167/101
[2017-03-15] MEDS ORDERED: VITAMIN D5000 UNI1 PO (12:47)
[2017-03-15] MEDS ORDERED: Vibra-Tab100 MG PO (12:47)
[2017-03-15] MEDS ORDERED: PREDNISONE10 MG PO (12:47)
[2017-03-15] MEDS ORDERED: HYDR25T PO (12:47)
--- NOTE | 2017-03-15 12:48 | NUR ---
PT PLACED BACK ON O2 3L NC DUE TO POX DROPPING TO 86-87% ON ROOM AIR.
[2017-03-15] MEDS ORDERED: NATURE'S BLEND F1 MG PO (12:51)
--- NOTE | 2017-03-15 13:15 | NUR ---
I CALLED TO NOTIFY DR SANDHU OF THE DISCHARGE ON THIS PT. HE STATED HE WOULD LIKE THIS PT TO REMAIN IN HOSPITAL AT THIS TIME DUE TO RESPIRATORY STATUS. I NOTIFIED DR MCKEON OF THIS AND HE STATED HE WILL SPEAK WITH DR GARDNER.
--- NOTE | 2017-03-15 14:01 | NUR ---
JEREMIAS was asked by nursing to locate pt's car. JEREMIAS called [employer] on [address]. Car was towed by [employer]. JEREMIAS called [employer]. Car is on lot with $90 owed as of today 03/15/17 and $12 per day for each day that it is there. JEREMIAS gave information to Pt and Nursing.
--- NOTE | 2017-03-15 14:20 | NUR ---
DR GARDNER CAME TO ICU AND IS AWARE OF DR SANDHU REQUEST. PT IS INSISTING ON BEING DISCHARGED AT THIS TIME THOUGH AND STATES HE DOES NOT WANT TO STAY ANYWAY.
--- NOTE | 2017-03-15 14:37 | NUR ---
PT MEDICATED WITH HIS PRN VALIUM DUE TO BECOMING ANXIOUS BECAUSE HE HAS TO WAIT FOR HIS RIDE TO PICK HIM UP. PT CALLED HIS FRIEND "BEAR" BUT HE MAY NOT BE ABLE TO PICK HIM UP FOR A FEW HOURS. PT'S CAR IS IN [place] AT [facility] AND HE WILL NEED TO PAY TO GET IT OUT. PT IS AWARE OF THIS AND WAS GIVEN THE NUMBER FOR THE GARAGE BY CASE MANAGEMENT.
--- NOTE | 2017-03-15 15:05 | NUR ---
Discharge instructions reviewed with patient/family. Patient receptive and verbalizes understanding. Follow-up care arranged. Written instructions given to patient/family. VAISHALI LARSON
--- NOTE | 2017-03-15 16:00 | NUR ---
PT DISCHARGED AT THIS TIME TO HOME WITH FRIEND.
== END 2017-03-15 16:00 | disposition home or self-care (01) | DRG 917 ==
LOC: ED 04:26 → ICCU 05:53 → EDHOLD 05:53 → 5E 06:06 → ICCU 11:17
PROVIDERS: Emergency Medicine Emergency Medical Services; Family Medicine; Hospitalist; Internal Medicine; Internal Medicine Critical Care Medicine; ADMIT Internal Medicine
PROC: 5A1935Z Respiratory Ventilation, Less than 24 Consecutive Hours (ICD-10-PCS; principal; 2017-03-13)
PROC: 5A12012 Performance of Cardiac Output, Single, Manual (ICD-10-PCS; 2017-03-13)
PROC: 0BH17EZ Insertion of Endotracheal Airway into Trachea, Via Natural or Artificial Opening (ICD-10-PCS; 2017-03-13)
DX: T42.4X1A Poisoning by benzodiazepines, accidental (unintentional), initial encounter (principal); J96.02 Acute respiratory failure with hypercapnia; I46.9 Cardiac arrest, cause unspecified; G93.41 Metabolic encephalopathy; J96.01 Acute respiratory failure with hypoxia; E44.0 Moderate protein-calorie malnutrition; N17.9 Acute kidney failure, unspecified; D72.1 Eosinophilia; E87.2 Acidosis; I48.0 Paroxysmal atrial fibrillation; J44.1 Chronic obstructive pulmonary disease with (acute) exacerbation; I50.32 Chronic diastolic (congestive) heart failure; I48.92 Unspecified atrial flutter; J44.0 Chronic obstructive pulmonary disease with (acute) lower respiratory infection; Z72.89 Other problems related to lifestyle; E55.9 Vitamin D deficiency, unspecified; E53.8 Deficiency of other specified B group vitamins; T40.2X1A Poisoning by other opioids, accidental (unintentional), initial encounter; E87.5 Hyperkalemia; I11.0 Hypertensive heart disease with heart failure; D72.810 Lymphocytopenia; F17.210 Nicotine dependence, cigarettes, uncomplicated; F31.9 Bipolar disorder, unspecified; E03.9 Hypothyroidism, unspecified; E78.5 Hyperlipidemia, unspecified; J20.9 Acute bronchitis, unspecified; E66.8 Other obesity; Z68.30 Body mass index [BMI] 30.0-30.9, adult; Z82.49 Family history of ischemic heart disease and other diseases of the circulatory system; Z79.899 Other long term (current) drug therapy; Z95.2 Presence of prosthetic heart valve; Y92.89 Other specified places as the place of occurrence of the external cause